=== PATIENT | male | born 1995 | race African-American/Black ===

== ENCOUNTER 2019-01-12 15:56 | Emergency (ER) | payer SELFPAY ==
[~2019-01-12] VITALS: Ht 175.3 cm; Wt 56.7 kg
== END 2019-01-12 21:35 | disposition short-term general hospital (02) ==
LOC: ER 15:56
DX: R06.02 Shortness of breath (principal); Z53.21 Procedure and treatment not carried out due to patient leaving prior to being seen by health care provider